=== PATIENT | female | born 1990 | race American Indian/Alaskan Native ===

== ENCOUNTER 2016-11-07 19:45 | Emergency (ER) | payer OTHER ==
[2016-11-07 20:09] VITALS: BP 111/71
[2016-11-07 21:31] LABS: Basophils % (Auto) 0.5 % (0.0-1.8); Eosinophils % (Auto) 2.6 % (0.0-4.3); Hematocrit 41.9 % (30.3-42.9); Hemoglobin 13.7 gm/dl (10.1-14.3); Mean Corpuscular HGB Conc 33 % (30-34); Mean Corpuscular Hemoglobin 30 pg (28-32); Mean Corpuscular Volume 90 fl (79-97); Platelet Count 238 K/mm3 (140-440); Red Blood Count 4.64 M/mm3 (3.65-5.03); Red Cell Distribution Width 13.5 % (13.2-15.2); White Blood Count 7.1 K/mm3 (4.5-11.0)
[2016-11-08 00:12] LABS: Bacteria,Urine 1+ /HPF (Negative); Bilirubin,Urine NEG (Negative); Blood,Urine NEG (Negative); Ketones,Urine NEG (Negative); Leukocyte Esterase,Urine NEG (Negative); Mucus,Urine 2+ /HPF; Nitrite,Urine NEG (Negative); Urobilinogen,Urine < 2.0 mg/dL (<2.0)
--- NOTE | 2016-11-28 15:26 | ED Elopement Review ---
ED Pt Elopement review - Results review Lab results: Laboratory Tests 11/07/16 11/07/16 11/07/16 20:42 20:42 20:49 WBC 7.1 RBC 4.64 Hgb 13.7 Hct 41.9 MCV 90 MCH 30 MCHC 33 RDW 13.5 Plt Count 238 Lymph % (Auto) 30.8 [place] % (Auto) 8.1 H Eos % (Auto) 2.6 Baso % (Auto) 0.5 Lymph # 2.2 Roane # 0.6 Eos # 0.2 Baso # 0.0 Seg Neutrophils % 58.0 Seg Neutrophils # 4.1 HCG, Quant < 2 Urine Color Urine Turbidity Urine pH Ur Specific Crane Urine Protein Urine Glucose (UA) Urine Ketones Urine Blood Urine Nitrite Urine Bilirubin Urine Urobilinogen Ur Leukocyte Esterase Urine WBC (Auto) Urine RBC (Auto) U Epithel Cells (Auto) Urine Bacteria (Auto) Hyaline Casts Urine Mucus Blood Type B NEGATIVE Antibody Screen Negative 11/07/16 Unknown WBC RBC Hgb Hct MCV MCH MCHC RDW Plt Count Lymph % (Auto) Ro[place] % (Auto) Eos % (Auto) Baso % (Auto) Lymph # Roane # Eos # Baso # Seg Neutrophils % Seg Neutrophils # HCG, Quant Urine Color Yellow Urine Turbidity Clear Urine pH 6.0 Ur Specific Crane 1.024 Urine Protein 100 mg/dl Urine Glucose (UA) Neg Urine Ketones Neg Urine Blood Neg Urine Nitrite Neg Urine Bilirubin Neg Urine Urobilinogen < 2.0 Ur Leukocyte Esterase Neg Urine WBC (Auto) 3.0 Urine RBC (Auto) 1.0 U Epithel Cells (Auto) 4.0 Urine Bacteria (Auto) 1+ Hyaline Casts 1 Urine Mucus 2+ Blood Type Antibody Screen - Call Back decision Pt Call Back Decision: Pt to F/U with PMD
== END 2016-11-08 01:11 | disposition left against medical advice (07) ==
LOC: ED 19:45
DX: R10.9 Unspecified abdominal pain (principal); R51 Headache; Z53.21 Procedure and treatment not carried out due to patient leaving prior to being seen by health care provider
CPT/HCPCS: 36415; 81001; 81025; 84702; 85025; 86850; 86900; 86901